=== PATIENT | female | born 1975 | race Caucasian/White ===

== ENCOUNTER → 2023-08-25 16:37 | Outpatient (REF) | payer OTHER, SELFPAY | LOC: WDC 16:37 | PROVIDERS: ATTENDING PHYSICIAN Obstetrics & Gynecology; FAMILY PHYSICIAN Emergency Medicine | DX: Z12.31 Encounter for screening mammogram for malignant neoplasm of breast (principal) | CPT/HCPCS: 77063; 77067 ==

== ENCOUNTER 2023-09-19 22:05 | Inpatient (IN) | payer OTHER, SELFPAY ==
[2023-09-19] VITALS (9 sets, daily range): BP systolic 110–167; BP diastolic 70–99; BMI 31.2
[2023-09-19 14:38] LABS: % Basophils 0.6 % (0-2); % Eosinophils 0.9 % (0-6); % Immature Granulocytes 0.3 % (0-0.5); % Lymphocytes 30.7 % (20.5-51.1); % Monocytes 7.1 % (1.7-9.3); % Neutrophils 60.4 % (42.2-75.2); Absolute Eosinophils 0.1 10^3/uL (0-0.7); Absolute Monocytes 0.5 10^3/uL (0.1-0.6); Absolute Neutrophils 3.9 10^3/uL (1.4-6.5); Hematocrit 40.9 % (37.0-47.0); Hemoglobin 14.8 g/dL (12.0-16.0); Mean Corp Hgb Conc. 36.2 g/dL (33.0-37.0); Mean Corpuscular Hgb 31.7 pg (27.0-31.0); Mean Corpuscular Volume 87.6 fL (81.0-99.0); Nucleated Red Blood Cells % 0 %; Platelet Count 261 10^3/uL (130-400); Red Blood Cell Count 4.67 10^6/uL (4.20-5.40); Red Cell Dist. Width 11.4 % (11.5-14.5); White Blood Cell Count 6.5 10^3/uL (4.8-10.8)
[2023-09-19 14:58] LABS: ALT (SGPT) 62 U/L (0-35); AST (SGOT) 219 U/L (14-36); Albumin 4.6 g/dl (3.5-5.0); Alkaline Phosphatase 94 U/L (38-126); Blood Urea Nitrogen 15 mg/dl (7-17); Calcium 9.9 mg/dl (8.4-10.2); Carbon Dioxide 28 mmol/L (22-30); Chloride 101 mmol/L (98-107); Glucose 113 mg/dl (70-99); Lipase 232 U/L (23-300); Potassium 3.9 mmol/L (3.5-5.1); Sodium 135 mmol/L (135-145); Total Bilirubin 1.9 mg/dl (0.2-1.3); Total Protein 7.5 g/dl (6.3-8.2); eGFR > 60.00
[2023-09-19 15:09] LABS: HCG, Serum Qualitative Screen Negative
--- NOTE | 2023-09-19 15:48 | ED.GENMED ---
History of Present Illness
General
Chief Complaint: Abdominal Pain
Time Seen by Provider: 09/19/23 15:40
Travel History
Have you had any contact with someone who has COVID-19?: No
Do you have any symptoms of coronavirus? Fever > 100 degrees, chills, cough, shortness of breath, sore throat, loss of taste or smell, muscle aches, or headache?: No
History of Present Illness
History of Present Illness:
Patient presents the emergency department with upper abdominal pain. Pain started suddenly at 1 PM after eating. She notes she has had similar pain in the past with negative workup. Endorses nausea without vomiting. Endorses chills and
diaphoresis. Denies chest pain or shortness of breath. Denies leg swelling. Denies lower abdominal pain.
Phy Exam
Physical Exam
Physical Exam:
GENERAL APPEARANCE: in distress, rocking in stretcher in pain
EYES lids/conjunctiva normal
EARS/NOSE/THROAT Mucous membranes moist, uvula midline without oral pharyngeal erythema, exudate or swelling
HEAD/NECK normocephalic atraumatic, neck is supple.
RESPIRATORY respiratory effort normal, speaks in full sentences, no accessory muscle use. Lungs clear to auscultation without rhonchi, wheezes, rales
CARDIAC Regular rate and rhythm, no edema.
ABDOMINAL soft, non distended, epigastric ttp
MUSCLES/EXTREMITIES No abnormal range of motion, no swelling.
SKIN Warm, pink and dry. No rashes
NEUROLOGICAL Speech is clear and appropriate. Normal level of consciousness. 5/5 strength in all extremities.
PSYCH Normal mood and affect. Judgement/competence is appropriate
Course
Orders/Labs/Results
Orders:
Orders
09/19/23 14:24
ECG [Electrocardiogram (*1)] Urgent
Reason for Study: Abdominal Pain
EKG- Treatment ONCE
09/19/23 14:29
Test Result ONCE
09/19/23 14:31
Complete Blood Count/With Diff Urgent
Comprehensive Metabolic Panel Urgent
HCG, Serum Qualitative Screen Urgent
Lipase Urgent
09/19/23 15:46
0.9% Sodium Chloride 1000 ml [Nss] 1,000 ml IV BOLUS
HYDROmorphone [Dilaudid] 1 mg IV NOW STA
Ondansetron Injectable [Zofran] 4 mg IV NOW STA
09/19/23 15:48
Pantoprazole [Protonix IV] 40 mg IV NOW STA
09/19/23 15:49
US Abdomen Complete/Upper Urgent
Comment:
Reason For Exam: upper abdominal pain
Abnormal Lab Results
09/19/23
14:31
MCH 31.7 H pg
(27.0-31.0)
RDW 11.4 L %
(11.5-14.5)
Glucose 113 H mg/dl
(70-99)
Total Bilirubin 1.9 H mg/dl
(0.2-1.3)
AST 219 H U/L
(14-36)
ALT 62 H U/L
(0-35)
09/19/23 14:31
09/19/23 14:31
Vital Signs
Initial and Last Documented VS:
Initial Vital Signs
Temp Pulse Resp BP Pulse Ox
97.7 F 86 20 167/99 99
09/19/23 14:21 09/19/23 14:21 09/19/23 14:21 09/19/23 14:21 09/19/23 14:21
Last Documented Vital Signs
Temp Pulse Resp BP Pulse Ox
97.7 F 75 17 122/85 98
09/19/23 14:21 09/19/23 20:00 09/19/23 19:45 09/19/23 20:00 09/19/23 20:00
*Critical Care Note
Total Time (30-74mins, 75-104mins- exclusive of procedures): Not Applicable
ED Attending Note
ED Attending Note
ED Attending Note:
Patient with acute onset epigastric and right upper quadrant abdominal pain. History suggestive of biliary pathology versus pancreatitis versus gastritis. Labs indicating elevated transaminases as well as total bilirubin. Will ultrasound abdomen
and treat symptomatically.
WBC 6.5, T bili 1.9, AST 219, ALT 62, alk phos 94 lipase normal
RUQ US shows cholelithiasis with layering sludge but no wall thickening and negative [place], CBD 6mm.
Given her persistent pain with abnormal LFTs and stone, concern for choledocholithiasis
Will admit for more of a workup, possibly HIDA or MRCP, GI consult
-
Portions of this chart may have been created with voice recognition software.� Occasional wrong word or��sound alike� substitutions may have occurred due to the inherent limitations of voice recognition software.
Discharge Plan
Departure
Patient Disposition: Admit
Date of Disposition: 09/19/23
Time of Disposition: 21:38
Admit to: Med/Surg
Admit to doctor: Rodger
Presentation/result/management discussed w/ accepting MD/DO: Hospitalist
Discharge Problem:
Cholelithiasis, Abnormal LFTs
Prescriptions:
No Action
MULTIPLE VITAMIN w/FE Tab
1 tab PO DAILY
folic acid-vit B6-vit B12 [Folplex 2.2] 1 EACH tablet
1 tab PO DAILY
oxycodone-acetaminophen 5 MG/325 MG tablet
1 tab PO Q4HPRN PRN (Reason: moderate pain) Qty: 30 0RF
ibuprofen 600 MG tablet
600 mg PO Q6HPRN PRN (Reason: moderate pain/cramps) Qty: 0 0RF
docusate sodium 100 MG capsule
100 mg PO BID Qty: 0 0RF
Referrals:
Cheyenne Dunaway MD [Family Provider] -
Interventions
Interventions:
*ED COVID-19 Vaccine History Last Done: 09/19/23 14:21
ZW-Mcqozq-Nealzogrdm Assessment Last Done: 09/19/23 16:01
Discharge Date and Time
Print Language: LITHUANIAN
[2023-09-19] MEDS: NSS 1000 IV ×2 (15:53→22:47)
[2023-09-19] MEDS: ZOFRAN 4 MG IV (15:54)
[2023-09-19] MEDS: DILAUDID 1 MG IV (15:54)
[2023-09-19] MEDS: PROTONIX IV 40 MG IV (15:54)
--- NOTE | 2023-09-19 21:38 | HPS.HSE ---
Family Physician
-
Family Physician: Cheyenne Dunaway MD
Chief Complaint
-
Return upper abdominal pain
History of Present Illness
47-year-old female with no known major medical history and not taking any medication, presented to the hospital after she had a sudden onset of upper abdominal pain mostly epigastric and right upper quadrant radiating to the right shoulder
associated with sweating, nausea but no vomiting. No relieving factor, in the ER received some Dilaudid which made a little more nauseous and lethargic and giving her headache, her pain is mild while earlier initially was extremely severe,
currently feels some tightness and squeezing in epigastric and the right upper quadrant area.
The pain started around 1:30 PM today while she was at a bridal shower lunch, and she had the same episode with her milder form on Thursday and she had another 15 February 2023, since Thursday she is trying to not eat heavy food while today the bridal
shower she ate some salmon and some of the staff and followed up by the event, denies any changes stool or urine color in the last few days, no fever or chill or cough or congestion, no headache or vision change.
Workup in the ER LFTs was elevated while in February is not, AST was 219 and ALT is 62.
Denies taking any NSAIDs or spicy or sour food, she took some Pepto-Bismol when the pain started Thursday and today without any relief.
The ultrasound showed cholelithiasis otherwise no acute abnormalities.
She is awake, alert and oriented x 3 and all appropriate conversation and accompanied by her at the bedside
Medical History
Past Medical History
Past Medical History: Reports Other
Additional Past Medical History:
Past medical history Reviewed: No known major medical disease
Social history: lives with her , no smoking, occasionally drinks alcohol.
Family history: Father had gallbladder disease as well.
Past Surgical History: Reports Other
Social History
Unable to obtain full social history at this time due to: Other
Family History
Family History: Other
Allergies / Home Medications
Allergies reflects when Allergies were last updated in [facility].
Home Medications with original date entered in [facility]
Allergy/Medication List:
Allergies
Allergy/AdvReac Type Severity Reaction Status Date / Time
No Known Allergies Allergy Verified 09/19/23 14:23
Home Medications
Not taking any medication
Review of Systems
-
A 12 point ROS was completed and negative except as noted: Yes
Physical Exam
Vital Signs
Vital Signs
Temp Pulse Resp BP Pulse Ox
97.7 F 75 17 122/85 98
09/19/23 14:21 09/19/23 20:00 09/19/23 19:45 09/19/23 20:00 09/19/23 20:00
Physical exam:
General: Awake, alert and oriented x3, not in distress and holds appropriate conversation.
HEENT: No active discharge, ecchymosis or bruising, moist lips, tongue and mucous membrane.
Eyes: No discharge or red conjunctiva, no nystagmus, pupils are reactive and equal
Neck:Supple, no JVD no bruit no goiter.
Respiratory: Normal AP contour and diameter, normal chest wall movement, normal respiratory effort, no respiratory distress,
Lungs: Good air entry bilaterally, no wheezing or rhonchi, no rales or crackles
Heart: S1, S2 regular, normal rate, no added sound.
Gastrointestinal: No skin rash positive bowel sounds, soft, upper abdominal tenderness with no guarding or rigidity or organomegaly
Musculoskeletal: , no chest wall abnormality or tenderness. All joints and extremities have good range of motion, no muscle tenderness or any joint swelling or tenderness.
Extremities: No pitting edema, good peripheral pulses, good range of motion
Skin: Warm and dry, no ulceration, normal color.
Neurological: Awake, alert and oriented x3, no facial droop, clear and comprehensive, good muscle tone, moves extremities freely
Psychiatric: Normal mood, normal thought and judgment, normal affect,
Physical Exam
General: Other
Laboratory Results
-
09/19/23 14:31
09/19/23 14:31
Laboratory Results
Total Bilirubin 1.9 mg/dl (0.2-1.3) H 09/19/23 14:31
AST 219 U/L (14-36) H 09/19/23 14:31
ALT 62 U/L (0-35) H 09/19/23 14:31
Alkaline Phosphatase 94 U/L (38-126) 09/19/23 14:31
Lipase 232 U/L (23-300) 09/19/23 14:31
Abdomen US:
Cholelithiasis. Gallbladder otherwise negative.
Remainder of the exam was unremarkable.
Data Reviewed
-
Medical Tests (Nuc Med, Echo, EKG etc): Image Personally Visualized and interpreted, Discussed with Patient and Discussed with Family
Lab Data: Labs Reviewed by me, Discussed with Patient and Discussed with Family
Old Records: Reviewed
Impression/Plan
-
IMPRESSION:
47-year-old female presented with epigastric pain with nausea and no vomiting after what sounds like Chandan had a heavy lunch and a bridal shower earlier today, had the same episode in a milder form on Thursday and another episode in February,
ultrasound showed gallstones as well as there is elevated LFT. Concern is a gallstone blocking about the common bile duct and eventually worst awake, acid ultrasound showed no common bile duct dilation, other causes gastritis or peptic ulcer
disease may need to be considered, doubt a cardiac cause of infection of pulm embolism, no skin rash for shingles.
Recurrent upper abdominal pain concerning for gallbladder disease and gallstone induced
Elevated transaminase possibly related to gallstone, even AST is higher than ALT but she admits she very occasionally drinks alcohol she had a drink for lunch today
Elevated bilirubin is 1.9 today as above related to the gallbladder stone likely
Gastritis or peptic ulcer disease may need to be considered
PLAN:
Since is a recurrent episode emesis twice this week and already having a gallstone stone, will get an MRCP to rule out common bile duct stone or any other abnormalities,
Clear liquid diet for now
Get a GI consult, and pending the MRCP may need a surgical consult, if this did not to be gallbladder related eventually the cholecystectomy especially with already having a gallstone and this is recurrent episode
Recheck LFT
Morphine as needed
Zofran as needed
She is not taking any medication
IV fluid
All discussed with the patient and the
CODE STATUS full code
DVT prophylaxis SCD
--- NOTE | 2023-09-19 22:10 | PTCARENOTE ---
Patient received from the ED via stretcher, ambulated into the room, AAOx3. VSS, Patient complained of abdominal discomfort, given pain medication PRN see JUL. Patient made comfortable, oriented to the room and educated on clear liquid diet. Call
heredia is within reach.
[2023-09-19] MEDS: MORPHINE SULFATE 2 MG IV (22:47)
[2023-09-20] MEDS: TORADOL 15 MG IV (02:09)
[2023-09-20] MEDS: ZOFRAN 4 MG IV (02:13)
[2023-09-20 07:00] VITALS: BP 119/79
[2023-09-20 07:02] LABS: % Basophils 0.7 % (0-2); % Eosinophils 2.9 % (0-6); % Immature Granulocytes 0.5 % (0-0.5); % Lymphocytes 28.6 % (20.5-51.1); % Neutrophils 51.3 % (42.2-75.2); Absolute Eosinophils 0.1 10^3/uL (0-0.7); Absolute Lymphocytes 1.2 10^3/uL (1.2-3.4); Absolute Monocytes 0.7 10^3/uL (0.1-0.6); Absolute Neutrophils 2.1 10^3/uL (1.4-6.5); Hematocrit 36.9 % (37.0-47.0); Mean Corp Hgb Conc. 35.2 g/dL (33.0-37.0); Mean Corpuscular Hgb 31.9 pg (27.0-31.0); Mean Corpuscular Volume 90.7 fL (81.0-99.0); Mean Platelet Volume 9.5 fL (7.4-10.4); Nucleated Red Blood Cells % 0.5 %; Platelet Count 192 10^3/uL (130-400); Red Blood Cell Count 4.07 10^6/uL (4.20-5.40); Red Cell Dist. Width 11.4 % (11.5-14.5); White Blood Cell Count 4.1 10^3/uL (4.8-10.8)
[2023-09-20 07:56] LABS: Urine Albumin Negative (Neg - Trace); Urine Bilirubin 1+ (Negative); Urine Character Clear (Clear); Urine Color Amber; Urine Glucose Negative (Negative); Urine Ketone Trace (Negative); Urine Leukocyte Negative (Negative); Urine Nitrite Negative (Negative); Urine Occult Blood Negative (Negative); Urine Specific Gravity 1.025 (<1.030); Urine Urobilinogen 2+ (Neg - 1+)
--- NOTE | 2023-09-20 08:06 | CON.GI ---
Addendum entered and electronically signed by Susanna Albert MD 09/20/23 15:58:
consult performed 09/20/2023, 3pm
Original Note:
Consultation
-
Date/Time Consultation Requested: 09/19/2023, 22:00
Date/Time Consultation Performed: 09/20/2023,
Requesting Provider: Dr. Orellana
Performing Provider: Dr. Albert
Reason for Consultation: elevated LFTs, abd pain
Medical History
Chief Complaint / HPI
Chief Complaint: upper abd pain
History of Present Illness:
47 yo p/w acute upper abd pain epigastic RUQ with nausea no vomiting. No f/c.
Patient of Dr. Nelson saw her recently 09/14/2023 having 4 episodes of pain right back radiating to RUQ started first in Feb (went to ER for this episode). A/w nausea, sweats. US during ER visit 02/[address] Nelson had high suspicion for
biliary colic and ordered HIDA (not done yet). Patient now having a more severe episode of RUQ/epigastric pain after going to bridal shower and having bundt cake, bermudian toast, salmon, mimosa- worst episode to date. With nausea, no vomiting, no
f/c.
Father had CCY not sure about mother
Labs remarkable for TB 1.9, AST 219, ALT 62, normal AP. Repeat labs TB 3.4, AST 902, ALT 616, AP 136, hep serologies neg (vaccinated against hep B).
US Cholelithiasis. Gallbladder otherwise negative. No holly dil, CBD 6 mm.
Past Medical History
Past Medical History: None
Past Surgical History: Other (scoliosis surgery)
Social History
Tobacco: Non-Smoker
Alcohol: Occasional
Drug: None
Family History
Family History: Other (dad with CCY)
Allergies / Home Medications
Allergy/AdvReac Type Severity Reaction Status Date / Time
No Known Allergies Allergy Verified 09/19/23 14:23
�Medication �Instructions �Recorded
MULTIPLE VITAMIN w/FE 1 tab PO DAILY 03/27/14
folic acid-vit B6-vit B12 2.2 1 tab PO DAILY 03/27/14
mg-25 mg-0.5 mg tablet (Folplex)
docusate sodium 100 mg capsule 100 mg PO BID #0 caps 03/31/14
ibuprofen 600 mg tablet 600 mg PO Q6HPRN PRN moderate 03/31/14
pain/cramps ##0
oxycodone-acetaminophen 5 mg-325 1 tab PO Q4HPRN PRN moderate pain 03/31/14
mg tablet ##30
Review of Systems
-
All other systems: A 12 pt ROS was Negative except as stated above in HPI
Vital Signs
Temp Pulse Resp BP Pulse Ox
98.6 F 80 18 129/85 98
09/19/23 22:16 09/19/23 22:16 09/19/23 22:16 09/19/23 22:16 09/19/23 22:16
Physical Exam
Exam
General: Well Developed
HEENT: Normocephalic
Respiratory: Clear
Cardiac: S1/S2
GI: Non Tender and Non Distended
Musculoskeletal: No Clubbing
Skin: Warm
Neuro: AO x 3
Psych: Calm
Results
WBC 4.1 10^3/uL (4.8-10.8) L 09/20/23 06:00
Hgb 13.0 g/dL (12.0-16.0) 09/20/23 06:00
Hct 36.9 % (37.0-47.0) L 09/20/23 06:00
MCV 90.7 fL (81.0-99.0) 09/20/23 06:00
Plt Count 192 10^3/uL (130-400) D 09/20/23 06:00
Absolute Neuts (auto) 2.1 10^3/uL (1.4-6.5) 09/20/23 06:00
Sodium 135 mmol/L (135-145) 09/19/23 14:31
Potassium 3.9 mmol/L (3.5-5.1) 09/19/23 14:31
Chloride 101 mmol/L (98-107) 09/19/23 14:31
Carbon Dioxide 28 mmol/L (22-30) 09/19/23 14:31
BUN 15 mg/dl (7-17) 09/19/23 14:31
Creatinine 0.7 mg/dL (0.6-1.0) 09/19/23 14:31
Calcium 9.9 mg/dl (8.4-10.2) 09/19/23 14:31
Total Bilirubin 1.9 mg/dl (0.2-1.3) H 09/19/23 14:31
AST 219 U/L (14-36) H 09/19/23 14:31
ALT 62 U/L (0-35) H 09/19/23 14:31
Alkaline Phosphatase 94 U/L (38-126) 09/19/23 14:31
Lipase 232 U/L (23-300) 09/19/23 14:31
Diagnostic Image Results:
Prior GI Procedures:
EGD:
Colonoscopy:
Assessment / Plan
-
47-year-old female presenting with abdominal pain found to have a elevated LFTs and gallstones. Most likely this is biliary colic. She may have choledocholithiasis as well with elevated bilirubin.
At this time, I recommend an MRI/MRCP which has been ordered. Repeat LFTs bili increased from 1.9 to 3.4 which is concerning for choledocho. I discussed with primary team we also consulted surgery as I suspect she will need her gallbladder out at
some interval. I d/w surgery. We discussed possible ERCP and how procedure is performed if needed.
I d/w surgery ok for clears after MRI, NPO after midnight for possible ERCP tomorrow.
-
-
Thank you for consultation and allowing me to participate in the patient's care. Please call the partition notcher GI physician during the after hours with any questions or concerns.
[2023-09-20 08:10] LABS: ALT (SGPT) 616 U/L (0-35); AST (SGOT) 902 U/L (14-36); Albumin 3.5 g/dl (3.5-5.0); Alkaline Phosphatase 136 U/L (38-126); Blood Urea Nitrogen 13 mg/dl (7-17); Calcium 8.9 mg/dl (8.4-10.2); Carbon Dioxide 28 mmol/L (22-30); Chloride 107 mmol/L (98-107); Estimated Creatinine Clearance 98 ml/min; Glucose 104 mg/dl (70-99); Potassium 4.5 mmol/L (3.5-5.1); Sodium 137 mmol/L (135-145); Total Bilirubin 3.4 mg/dl (0.2-1.3); Total Protein 6.1 g/dl (6.3-8.2); eGFR > 60.00
[2023-09-20 08:21] LABS: TSH 1.82 uIU/ml (0.47-4.68)
[2023-09-20 08:28] LABS: Direct Bilirubin 1.2 mg/dl (0.0-0.4)
[2023-09-20] MEDS: MORPHINE SULFATE 2 MG IV ×3 (08:28→23:26)
[2023-09-20] MEDS: NSS 1000 IV (08:29)
[2023-09-20] MEDS: SENOKOT-S 1 TABLET PO (08:43)
--- NOTE | 2023-09-20 10:36 | W.PN.HOSP.TC ---
Today's Communication/Plan
-
see A/P
Assessment / Plan
Assessment / Plan
HPI: 47-year-old female with no known medical history and not taking any medication, presented to the hospital after she had a sudden onset of upper abdominal pain mostly epigastric and right upper quadrant radiating to the right shoulder associated
with sweating, nausea but no vomiting.
The pain started around 1:30 PM while she was at a bridal shower lunch, and she had a similar milder episode a few days prior.
In the ED, her LFT was noted to be elevated.
Ultrasound showed cholelithiasis otherwise no acute abnormalities.
A/P:
# RUQ Abd pain with gallstone, likely due to biliary colic
# Worsening transaminitis
Pt denies to medication use, also not on herbal supplement
Abd US noted Cholelithiasis, Gallbladder otherwise negative
Lipase WNL.
Check MRCP to rule out common bile duct pathology
Check hepatitis panel for worsening transaminitis
NPO for now, cont IVF while NPO, change NSS to RL
Follow LFT
Pain control with Morphine as needed
Antiemetic with Zofran as needed
GI on board
GS consulted
CODE STATUS full code
DVT prophylaxis SCD
DW RN
DW at bedside
Anticipated Discharge: 24 - 48 hours
Subjective/Interval History
-
Date of Service: September 20, 2023
Objective Data
-
Labs:
Laboratory Results
09/20/23
06:00
WBC 4.1 L
Hgb 13.0
Hct 36.9 L
Plt Count 192 D
Sodium 137
Potassium 4.5
Chloride 107
Carbon Dioxide 28
BUN 13
Creatinine 0.7
Glucose 104 H
Calcium 8.9
Total Bilirubin 3.4 H D
AST 902 H*
ALT 616 H*
Alkaline Phosphatase 136 H
Vital Signs:
Vital Signs
Temp Pulse Resp BP Pulse Ox
36.7 C 64 14 119/79 100
09/20/23 07:00 09/20/23 07:00 09/20/23 07:00 09/20/23 07:00 09/20/23 07:00
I&O
09/19/23 09/20/23 09/21/23
06:59 06:59 06:59
Intake Total 1859
Balance 1859
Review of Systems
-
All other systems: Reviewed and negative
Physical Exam
-
General: Well Developed, Well Nourished, No Apparent Distress, Comfortable and Conversant; Negative Respiratory Distress
HEENT: Normocephalic, Atraumatic, Nose Appears Normal and Ears Appear Normal; Negative Oxygen
Respiratory: Clear to Auscultation and Non Labored Respirations; Negative Accessory Resp Muscle Use
Cardiac: Regular Rhythm and S1/S2
GI: Soft, Nontender and Nondistended
Skin: Warm and Dry
Neuro: Awake, Alert, Oriented and AO x 3
Psych: Calm and Intact Judgement/Insight
Data Reviewed
-
Ultrasound: Report Reviewed by me
Labs: Labs Reviewed by me
[2023-09-20] MEDS: LR 1000 IV ×2 (11:22→21:38)
[2023-09-20 12:11] LABS: Hepatitis B Surface Antigen Negative (Negative)
[2023-09-20 12:14] LABS: Hepatitis B Core Ab, IgM Negative (Negative)
[2023-09-20 12:28] LABS: Hepatitis B Core Ab, Total Negative (Negative); Hepatitis B Surface Antibody Positive; Hepatitis C Antibody Negative (Negative)
--- NOTE | 2023-09-20 12:28 | CON.GS ---
Consultation
-
Date/Time Consultation Requested: 09/20/23 0803
Requesting Provider: Dai
Medical History
-
Chief Complaint: abdominal pain
History of Present Illness:
This is a 47 yo female with a history of who presented through the ED with acute onset of upper abdominal pain radiating over to the right side. She has had a similar episode this severe in February with negative US at that time. She has
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 Nelson since that time for further work up. She had an episode of RUQ/epigastric pain on Thursday of pain which was self limiting and without n/v. She went to a bridal shower the following day, and after
lunch developed pain again with diaphoresis and nausea. She is currently tender to the RUQ on exam. She denies n/v. Jaundice is noted.
Past Medical History
Past Medical History: None
Past Surgical History:
Social History
Tobacco: Non-Smoker
Alcohol: Occasional
Personal:
Living: With Family
Family History
Family History: Reviewed & Not Pertinent
Allergies / Home Medications
Allergy/AdvReac Type Severity Reaction Status Date / Time
No Known Allergies Allergy Verified 09/19/23 14:23
�Medication �Instructions �Recorded �Confirmed �Type
MULTIPLE VITAMIN w/FE 1 tab PO DAILY 03/27/14 09/19/23 History
folic acid-vit B6-vit B12 2.2 1 tab PO DAILY 03/27/14 09/19/23 History
mg-25 mg-0.5 mg tablet (Folplex)
docusate sodium 100 mg capsule 100 mg PO BID #0 caps 03/31/14 09/19/23 Rx
ibuprofen 600 mg tablet 600 mg PO Q6HPRN PRN moderate 03/31/14 09/19/23 Rx
pain/cramps ##0
oxycodone-acetaminophen 5 mg-325 1 tab PO Q4HPRN PRN moderate pain 03/31/14 09/19/23 Rx
mg tablet ##30
Review of Systems
-
History Source: Patient
All other systems: Negative unless noted
A 10 point review of systems was completed, and was negative except as per HPI.
Physical Exam
Vital Signs
Temp Pulse Resp BP Pulse Ox
98.0 F 64 14 119/79 100
09/20/23 07:00 09/20/23 07:00 09/20/23 07:00 09/20/23 07:00 09/20/23 07:00
09/19/23 09/20/23 09/21/23
06:59 06:59 06:59
Actual Weight 77.224 kg
Body Mass Index (BMI) 31.2
Lab Results
09/20/23 06:00
09/20/23 06:00
WBC 4.1 10^3/uL (4.8-10.8) L 09/20/23 06:00
Hgb 13.0 g/dL (12.0-16.0) 09/20/23 06:00
Hct 36.9 % (37.0-47.0) L 09/20/23 06:00
Plt Count 192 10^3/uL (130-400) D 09/20/23 06:00
Abs Immat Gran (auto) 0.0 10^3/uL (0-0.05) 09/20/23 06:00
Neutrophils % 51.3 % (42.2-75.2) 09/20/23 06:00
Physical Exam
General: Comfortable
HEENT: Normocephalic and Moist Mucous Membranes
Respiratory: Non Labored Respirations
GI: Soft, Non Distended and Tender (RUQ)
Skin: Warm and Jaundice
Neuro: Awake and AO x 3
Psych: Calm
Data Reviewed
-
Ultrasound: Image Personally Visualized and interpreted, Report Reviewed by me, Discussed with Physician and Discussed with Patient
Labs: Labs Reviewed by me, Discussed with Physician and Discussed with Patient
Old Records: Reviewed
Assessment / Plan
-
47 yo female with biliary colic with RUQ and epigastric pain/nausea recurrently after meals this weekend. Currently tender to the RUQ. No f/c. LFT's abnormal and rising bilirubin. Jaundice present. Cholelithiasis without cholecystitis on US in ED.
AFVSS. No leukocytosis although there is mild leukopenia today.
--GI following with us, d/c Dr. Albert
--MRCP pending, ?choledocholithiasis
--Would recommend laparoscopic cholecystectomy, timing TBD pending MRCP findings as she may need ERCP first
--Analgesics/antiemetics prn
--Trend labs
[2023-09-20 12:31] LABS: Hepatitis A Antibody, Total Negative (Negative)
[2023-09-20 13:36] LABS: Hepatitis A IgM Antibody Negative (Negative)
[2023-09-20 15:00] VITALS: BP 150/102
--- NOTE | 2023-09-20 22:37 | VATNOTE ---
Unsuccessful x2 attempts to place new IV. Other VAT RN to attempt.
[2023-09-20 23:46] VITALS: BP 126/73
[2023-09-21 05:15] LABS: % Basophils 0.5 % (0-2); % Eosinophils 5.2 % (0-6); % Lymphocytes 36.1 % (20.5-51.1); % Monocytes 8.8 % (1.7-9.3); % Neutrophils 49.4 % (42.2-75.2); Absolute Eosinophils 0.2 10^3/uL (0-0.7); Absolute Lymphocytes 1.5 10^3/uL (1.2-3.4); Absolute Monocytes 0.4 10^3/uL (0.1-0.6); Absolute Neutrophils 2.1 10^3/uL (1.4-6.5); Hematocrit 36.4 % (37.0-47.0); Hemoglobin 12.7 g/dL (12.0-16.0); Mean Corp Hgb Conc. 34.9 g/dL (33.0-37.0); Mean Corpuscular Hgb 31.7 pg (27.0-31.0); Mean Corpuscular Volume 90.8 fL (81.0-99.0); Mean Platelet Volume 9.7 fL (7.4-10.4); Nucleated Red Blood Cells % 0 %; Platelet Count 175 10^3/uL (130-400); Red Blood Cell Count 4.01 10^6/uL (4.20-5.40); Red Cell Dist. Width 11.2 % (11.5-14.5); White Blood Cell Count 4.2 10^3/uL (4.8-10.8)
[2023-09-21 05:45] LABS: ALT (SGPT) 410 U/L (0-35); AST (SGOT) 261 U/L (14-36); Albumin 3.4 g/dl (3.5-5.0); Alkaline Phosphatase 173 U/L (38-126); Blood Urea Nitrogen 11 mg/dl (7-17); Calcium 9.3 mg/dl (8.4-10.2); Carbon Dioxide 24 mmol/L (22-30); Chloride 107 mmol/L (98-107); Estimated Creatinine Clearance 98 ml/min; Glucose 77 mg/dl (70-99); Magnesium 1.9 mg/dl (1.6-2.3); Potassium 4.4 mmol/L (3.5-5.1); Sodium 138 mmol/L (135-145); Total Bilirubin 3.8 mg/dl (0.2-1.3); Total Protein 5.8 g/dl (6.3-8.2); eGFR > 60.00
[2023-09-21 07:00] VITALS: BP 123/76
[2023-09-21] MEDS: LR 1000 IV ×2 (08:55→23:24)
--- NOTE | 2023-09-21 09:15 | W.PN.GI.CBS2 ---
Today's Communication / Plan
-
mri further recs pending
Assessment / Plan
-
47-year-old female presenting with abdominal pain found to have a elevated LFTs and gallstones. Most likely this is biliary colic as well as choledocholithiasis with rising bili.
At this time, I recommend an MRI/MRCP which patient is going for now. We discussed possible ERCP and r/a/b reviewed inc but not limited to bleeding, infection, perforation, pancreatitis. Pending MRI may have ERCP today with Dr. Hanley.
I d/w surgery today as well plan will need CCY as well.
OK for tylenol for headache.
Subjective
Subjective
Date of Service: September 21, 2023
pain improved but has not eaten
has caffeine headache
Objective
Data Reviewed
Laboratory Data:
Laboratory Results
09/21/23 04:34
09/21/23 04:34
Laboratory Results
Magnesium 1.9 mg/dl (1.6-2.3) 09/21/23 04:34
Total Bilirubin 3.8 mg/dl (0.2-1.3) H 09/21/23 04:34
AST 261 U/L (14-36) H 09/21/23 04:34
ALT 410 U/L (0-35) H 09/21/23 04:34
Alkaline Phosphatase 173 U/L (38-126) H 09/21/23 04:34
Lipase 232 U/L (23-300) 09/19/23 14:31
Vital Signs and I&O:
Vital Signs
Temp Pulse Resp BP Pulse Ox
97.8 F 83 18 123/76 98
09/21/23 07:00 09/21/23 07:00 09/21/23 07:00 09/21/23 07:00 09/21/23 08:48
I&O
09/20/23 09/21/23 09/22/23
06:59 06:59 06:59
Intake Total 1859
Output Total 200 / 200
Balance 1859
Physical Exam
Physical Exam
HEENT: Other (icteric)
Cardiology: Normal Sinus Rhythm
Pulmonary: Clear
GI: Non Distended and Non Tender
--- NOTE | 2023-09-21 09:35 | W.PN.GS2 ---
Today's Communication / Plan
-
MRCP/ERCP. Appreciate GI input.
Plan for lap hermelinda this admission.
Assessment / Plan
-
This is a 47-year-old female with a history of a who presents with a 1 day history of acute postprandial right upper quadrant pain with 1 similar episode in February. Workup here concerning for cholelithiasis, elevated LFTs concerning for
choledocholithiasis.
Bilirubin rising recommend MRCP versus straight ERCP, will defer to GI.
Plan for laparoscopic cholecystectomy this admission, timing to be determined unlikely to be today. Okay for diet after any procedures today, n.p.o. at midnight.
No clear indication for antibiotics at this point.
Trend CMP and CBC.
General surgery will continue to follow.
Time Spent
Total Time Spent with Patient (in minutes): 30
Subjective Data
-
Date of Service: September 21, 2023
This interval Events:
No acute events overnight. Slept well. Pain Controlled. Denies Nausea/Vomiting, +bowel function. Tolerating diet.
Objective Data
-
Intake and Output
09/20/23 09/21/23 09/22/23
06:59 06:59 06:59
Intake Total 1860 / 1860 1960 / 1960
Output Total 200 / 200
Balance 1860 / 1860 1760 / 1760
Intake:
Oral fluids 960 / 960 960 / 960
IV fluids (Total) 900 / 900 1000 / 1000
Output:
Urine, Voided 200 / 200
Other:
Number of approximated MODERATE 1 1
amounts of urine
How many times incontinent 1
MODERATE amount urine
Vital Signs
Temp Pulse Resp BP Pulse Ox
97.8 F 83 18 123/76 98
09/21/23 07:00 09/21/23 07:00 09/21/23 07:00 09/21/23 07:00 09/21/23 08:48
Lab Results
09/21/23 04:34
09/21/23 04:34
Calcium 9.3 mg/dl (8.4-10.2) 09/21/23 04:34
Magnesium 1.9 mg/dl (1.6-2.3) 09/21/23 04:34
Total Bilirubin 3.8 mg/dl (0.2-1.3) H 09/21/23 04:34
Direct Bilirubin 1.2 mg/dl (0.0-0.4) H 09/20/23 06:00
AST 261 U/L (14-36) H 09/21/23 04:34
ALT 410 U/L (0-35) H 09/21/23 04:34
Alkaline Phosphatase 173 U/L (38-126) H 09/21/23 04:34
Total Protein 5.8 g/dl (6.3-8.2) L 09/21/23 04:34
Albumin 3.4 g/dl (3.5-5.0) L 09/21/23 04:34
Physical Exam
-
GENERAL/NEURO: Awake, Alert, no distress
CHEST: Unlabored breathing on RA
ABDOMEN: Soft, Non-Tender, Non-Distended
--- NOTE | 2023-09-21 10:09 | W.PN.HOSP.TC ---
Today's Communication/Plan
-
Choledocholithiasis status post ERCP today
Appreciate GI and surgery
Assessment / Plan
Assessment / Plan
Physical Exam
Physical Exam was not able to be performed as patient was not present in her room at the time of attempted patient encounter.

Assessment/Plan
HPI: 47-year-old female with no known medical history and not taking any medication, presented to the hospital after she had a sudden onset of upper abdominal pain mostly epigastric and right upper quadrant radiating to the right shoulder associated
with sweating, nausea but no vomiting.
The pain started while she was at a bridal shower lunch, and she had a similar milder episode a few days prior.
In the emergency department, her LFTs were noted to be elevated.
Ultrasound showed cholelithiasis otherwise no acute abnormalities.
# RUQ Abd pain with gallstone, likely due to biliary colic
# Worsening transaminitis
# Choledocholithiasis/ sludge was found status post biliary sphincterotomy and balloon extraction.
Patient denied medication use, also not on herbal supplement
Abdominal ultrasound noted - Cholelithiasis, Gallbladder otherwise negative
Lipase WNL.
MRCP with stone in CBD
Check hepatitis panel
NPO for now, cont IVF while NPO
Follow LFT
Pain control with Morphine as needed
Antiemetic with Zofran as needed
GI on board
GS consulted -- lap hermelinda for this admission
CODE STATUS full code
DVT prophylaxis SCD
Anticipated Discharge: 24 - 48 hours
Subjective/Interval History
-
Date of Service: September 21, 2023
Patient was not present in her room at the time of attempted patient encounter. Patient's chart was reviewed.
Objective Data
-
Labs:
Laboratory Results
09/21/23
04:34
WBC 4.2 L
Hgb 12.7
Hct 36.4 L
Plt Count 175
Sodium 138
Potassium 4.4
Chloride 107
Carbon Dioxide 24
BUN 11
Creatinine 0.7
Glucose 77
Calcium 9.3
Total Bilirubin 3.8 H
AST 261 H
ALT 410 H
Alkaline Phosphatase 173 H
Vital Signs:
Vital Signs
Temp Pulse Resp BP Pulse Ox
97.8 F 83 18 123/76 98
09/21/23 07:00 09/21/23 07:00 09/21/23 07:00 09/21/23 07:00 09/21/23 08:48
I&O
09/20/23 09/21/23 09/22/23
06:59 06:59 06:59
Intake Total 1859 / 1959
Output Total 200 / 200
Balance 1859 1760 / 1760
[2023-09-21] MEDS: MORPHINE SULFATE 2 MG IV (10:42)
[2023-09-21] MEDS: FLUSH (NSS) 1 FLUSH IV ×2 (10:43→10:48)
[2023-09-21] MEDS: ZOFRAN 4 MG IV (10:48)
--- NOTE | 2023-09-21 10:58 | W.PN.UPDATE ---
Update Note
Progress Note Update
MRI + stone CBD
Likely ERCP this afternoon
Updated patient
D/w ERCP team and surgery team
Keep NPO
Ok for one dose of tylenol for headache
--- NOTE | 2023-09-21 14:30 | CM ---
Patient out of room to procedure. Patient at bedside. Patient states that they live in a 2 story home with no Prior DME. Patient was independent of ADL's and IADL's prior to admission. Patient states that they use the [facility] and that her Dr. Dunaway is her PCP. Patient anticipates no needs at discharge. CM will continue to follow for discharge planning needs.
Plan; home with no needs anticipated.
[2023-09-21 15:30] VITALS: BP 152/86
--- NOTE | 2023-09-21 16:19 | PTCARENOTE ---
Pt returned from PACU/GI lab via stretcher, accompanied by volunteer. Pt AAO x3, DUBON; drowsy. Pt transferred to bed. VSS. On room air- pulse ox 100%, no SOB noted. Abd soft, rounded, no c/o abd discomfort; BS (+)> Pt to start clear liquid diet;
aware of NPO past midnight for OR 09/21. Pt DTV post-procedure. IVF's RL @ 100 ml/hr resumed via Lt hand site without sxof infiltration. Currently resting in bed, no c/o. Will continue to monitor.
[2023-09-21 16:30] VITALS: BP 123/76
[2023-09-21 17:30] VITALS: BP 140/91
[2023-09-21 23:03] VITALS: BP 137/79
[2023-09-22 07:55] VITALS: BP 123/82
[2023-09-22] MEDS: LR 1000 IV ×2 (08:36→18:24)
--- NOTE | 2023-09-22 08:46 | W.PN.GS2 ---
Today's Communication / Plan
-
--Laparoscopic cholecystectomy with possible cholangiogram
--NPO, IVF
--Antibiotics: Zosyn
Assessment / Plan
-
This is a 47-year-old female with a history of a who presents with a 1 day history of acute postprandial right upper quadrant pain with 1 similar episode in February. Workup here concerning for cholelithiasis, elevated LFTs concerning for
choledocholithiasis.
PPD#1 s/p ERCP with stone removal, mild visualization of cystic duct no filling of GB
The natural history and pathophysiology of biliary and stone disease was discussed. Workup and management thus far was reviewed. Role of cholecystectomy in preventing future episodes of cholecystitis or choledocholithiasis was reviewed. Patient
would like to proceed with surgery.
Plan for laparoscopic cholecystectomy with possible cholangiogram. The procedure itself, as well as the risks, benefits, and alternatives was discussed. Specifically, we discussed the risks of bleeding, infection, injury to surrounding structures
(bowel, bile ducts), CBD injury, and need for open procedure. Typical postprocedural recovery was discussed. All questions answered. Consent signed.
--Laparoscopic cholecystectomy with possible cholangiogram
--NPO, IVF
--Antibiotics: Zosyn
--Pain control: Tylenol and IV Morphine PRN
Subjective Data
-
Date of Service: September 22, 2023
Feels improved. Pain improved. No nausea or vomiting. No fevers or chills. Reports having prior attacks in February and last Thursday. Denies any jaundice, pale stools, or tea colored urine.
Objective Data
-
Intake and Output
09/21/23 09/22/23 09/23/23
06:59 06:59 06:59
Intake Total 1959 / 1959 3920 / 3920
Output Total 200 / 200
Balance 1760 / 1760 3920 / 3920
Intake:
Oral fluids 960 / 960 1920 / 1920
IV fluids (Total) 1000 / 1000 1999 / 1999
Output:
Urine, Voided 200 / 200
Other:
Number of approximated MODERATE 1 2
amounts of urine
How many times incontinent 1
MODERATE amount urine
Vital Signs
Temp Pulse Resp BP Pulse Ox
98.4 F 61 16 123/82 98
09/22/23 07:55 09/22/23 07:55 09/22/23 07:55 09/22/23 07:55 09/22/23 08:29
Calcium 9.3 mg/dl (8.4-10.2) 09/21/23 04:34
Magnesium 1.9 mg/dl (1.6-2.3) 09/21/23 04:34
Total Bilirubin 3.8 mg/dl (0.2-1.3) H 09/21/23 04:34
Direct Bilirubin 1.2 mg/dl (0.0-0.4) H 09/20/23 06:00
AST 261 U/L (14-36) H 09/21/23 04:34
ALT 410 U/L (0-35) H 09/21/23 04:34
Alkaline Phosphatase 173 U/L (38-126) H 09/21/23 04:34
Total Protein 5.8 g/dl (6.3-8.2) L 09/21/23 04:34
Albumin 3.4 g/dl (3.5-5.0) L 09/21/23 04:34
Physical Exam
-
Gen: NAD
Abd: soft, mild tenderness, in RUQ, ND, non-peritoneal, prior scar well healed
--- NOTE | 2023-09-22 09:03 | W.PN.GI.CBS2 ---
Addendum entered and electronically signed by Estephania Holland DO 09/22/23 11:46:
I saw and examined the patient.
The MEDIA PLANNER or PA's note was reviewed and I agree with the note.
Comment: s/p ERCP with sphincterotomy yesterday for choledocholithiasis. Reports feeling well this morning. Plan for cholecystectomy today. GI will sign off, please call with questions.
Original Note:
Today's Communication / Plan
-
Await labs
For CCY
Diet per surgery
Assessment / Plan
-
47-year-old female presenting with abdominal pain found to have a elevated LFTs and gallstones. Found to have choledocholithiasis now s/p ERCP.
ERCP 09/21/23 - The major papilla appeared normal. (Noted next to a
diverticulum )
- A filling defect consistent with a stone was seen on
the cholangiogram.
- Choledocholithiasis/ sludge was found. Complete
removal was accomplished by biliary sphincterotomy and
balloon extraction.
- A biliary sphincterotomy was performed.
Impression:
Choledocholithiasis s/p ERCP with sphincterotomy and stone extraction
Cholelithiasis
Plan:
-Await labs
-Patient for CCY today
-Diet as per Surgery
Subjective
Subjective
Date of Service: September 22, 2023
Patient s/p ERCP 09/21/23 with sphincterotomy and stone extraction performed. Patient with some mild epigastric discomfort. Labs pending for today. Urine color is back to normal light yellow from 'orange color'. For cholecystectomy today.
Objective
Data Reviewed
Laboratory Data:
Laboratory Results
Magnesium 1.9 mg/dl (1.6-2.3) 09/21/23 04:34
Total Bilirubin 3.8 mg/dl (0.2-1.3) H 09/21/23 04:34
AST 261 U/L (14-36) H 09/21/23 04:34
ALT 410 U/L (0-35) H 09/21/23 04:34
Alkaline Phosphatase 173 U/L (38-126) H 09/21/23 04:34
Lipase 232 U/L (23-300) 09/19/23 14:31
Vital Signs and I&O:
Vital Signs
Temp Pulse Resp BP Pulse Ox
98.4 F 61 16 123/82 98
09/22/23 07:55 09/22/23 07:55 09/22/23 07:55 09/22/23 07:55 09/22/23 08:29
I&O
09/21/23 09/22/23 09/23/23
06:59 06:59 06:59
Intake Total 1960 / 1960 3920 / 3920
Output Total 200 / 200
Balance 1760 / 1760 3920 / 3920
Physical Exam
Physical Exam
HEENT: Anicteric
Cardiology: Normal Sinus Rhythm
Pulmonary: Clear
GI: Soft, Non Distended, Non Tender and Normal Bowel Sounds
Extremities: No Edema
Neuro: Non Focal
[2023-09-22 09:32] LABS: Hematocrit 37.7 % (37.0-47.0); Hemoglobin 13.5 g/dL (12.0-16.0); Mean Corp Hgb Conc. 35.8 g/dL (33.0-37.0); Mean Corpuscular Hgb 31.9 pg (27.0-31.0); Mean Corpuscular Volume 89.1 fL (81.0-99.0); Mean Platelet Volume 9.7 fL (7.4-10.4); Platelet Count 227 10^3/uL (130-400); Red Blood Cell Count 4.23 10^6/uL (4.20-5.40); Red Cell Dist. Width 11.1 % (11.5-14.5); White Blood Cell Count 5.5 10^3/uL (4.8-10.8)
[2023-09-22 09:49] LABS: ALT (SGPT) 280 U/L (0-35); AST (SGOT) 74 U/L (14-36); Albumin 3.8 g/dl (3.5-5.0); Alkaline Phosphatase 170 U/L (38-126); Blood Urea Nitrogen 9 mg/dl (7-17); Calcium 9.9 mg/dl (8.4-10.2); Carbon Dioxide 27 mmol/L (22-30); Chloride 105 mmol/L (98-107); Estimated Creatinine Clearance 114 ml/min; Glucose 111 mg/dl (70-99); Potassium 4.3 mmol/L (3.5-5.1); Sodium 137 mmol/L (135-145); Total Bilirubin 2.9 mg/dl (0.2-1.3); Total Protein 6.4 g/dl (6.3-8.2); eGFR > 60.00
[2023-09-22] MEDS: FLUSH (NSS) 1 FLUSH IV ×2 (10:04→15:59)
[2023-09-22] MEDS: ZOSYN 50 IV ×3 (10:04→21:55)
--- NOTE | 2023-09-22 11:36 | CM ---
I visited Elke in her room today and provided support. She will have cholecystectomy today. Plan is to return home with at discharge. CM will continue to follow.
--- NOTE | 2023-09-22 12:15 | W.SUR.PREOP ---
Pre-Operative Surgical Note
-
I have examined this patient prior to the performance of the scheduled procedure.
The patient's condition is unchanged from the time of the current History and
Physical and the patient is able to undergo the scheduled procedure.
--- NOTE | 2023-09-22 15:47 | W.PN.HOSP.TC ---
Today's Communication/Plan
-
Lap hermelinda for today
Spoke to surgeon -- patient cannot be discharged today
Assessment / Plan
Assessment / Plan
Physical Exam
General: Well Developed, Well Nourished, No Apparent Distress, Comfortable and Conversant; Negative Respiratory Distress
HEENT: Normocephalic, Atraumatic, Nose Appears Normal and Ears Appear Normal; Negative Oxygen
Respiratory: Clear to Auscultation and Non Labored Respirations; Negative Accessory Resp Muscle Use
Cardiac: Regular Rhythm and S1/S2
GI: Soft, Nontender and Nondistended. Positive bowel sounds.
Skin: Warm and Dry
Neuro: Awake, Alert, Oriented and AO x 3
Psych: Calm and Intact Judgement/Insight

Assessment/Plan
HPI: 47-year-old female with no known medical history and not taking any medication, presented to the hospital after she had a sudden onset of upper abdominal pain mostly epigastric and right upper quadrant radiating to the right shoulder associated
with sweating, nausea but no vomiting.
The pain started while she was at a bridal shower lunch, and she had a similar milder episode a few days prior.
In the emergency department, her LFTs were noted to be elevated.
Ultrasound showed cholelithiasis otherwise no acute abnormalities.
# RUQ Abd pain with gallstone, likely due to biliary colic
# Worsening transaminitis
# Choledocholithiasis/ sludge was found status post biliary sphincterotomy and balloon extraction.
Patient denied medication use, also not on herbal supplement
Abdominal ultrasound noted - Cholelithiasis, Gallbladder otherwise negative
Lipase WNL.
MRCP with stone in CBD
Hepatitis panel Hep B surface antibody positive
NPO for now
Follow LFT
Pain control with Morphine as needed
Antiemetic with Zofran as needed
GI on board
GS consulted -- lap hermelinda for this admission
Lap hermelinda today -- spoke to surgeon and patient will not be able to be discharged today
CODE STATUS full code
DVT prophylaxis SCD
Anticipated Discharge: 24 - 48 hours
Subjective/Interval History
-
Date of Service: September 22, 2023
Patient was seen and examined. She denied any abdominal pain or any other new symptoms or complaints.
Objective Data
-
Labs:
Laboratory Results
09/22/23
09:07
WBC 5.5
Hgb 13.5
Hct 37.7
Plt Count 227 D
Sodium 137
Potassium 4.3
Chloride 105
Carbon Dioxide 27
BUN 9
Creatinine 0.6
Glucose 111 H
Calcium 9.9
Total Bilirubin 2.9 H
AST 74 H
ALT 280 H
Alkaline Phosphatase 170 H
Vital Signs:
Vital Signs
Temp Pulse Resp BP Pulse Ox
98.4 F 61 16 123/82 98
09/22/23 07:55 09/22/23 07:55 09/22/23 07:55 09/22/23 07:55 09/22/23 08:29
I&O
09/21/23 09/22/23 09/23/23
06:59 06:59 06:59
Intake Total 1960 / 1960 3920 / 3920
Output Total 200 / 200
Balance 1760 / 1760 3920 / 3920
[2023-09-22 15:55] VITALS: BP 131/81
--- NOTE | 2023-09-22 16:01 | PTCARENOTE ---
Pt AAO x3, DUBON well, ambulatory in room/to BR; geraldo well. VSS. On room air- pulse ox 99%, no SOB noted. Abd soft, rounded, remains NPO for OR. Voiding in BR without difficulty. IVF's RL @ 100 ml/hr infusing via Lt hand without sx of infiltration.
No c/o at present. Will continue to monitor.
[2023-09-22 23:36] VITALS: BP 149/94
[2023-09-23] MEDS: VISBIOME 1 CAP PO (01:07)
[2023-09-23 03:48] VITALS: BP 117/67
[2023-09-23] MEDS: LR 1000 IV (04:50)
[2023-09-23] MEDS: ZOSYN 50 IV (04:53)
[2023-09-23 07:16] LABS: % Basophils 0.6 % (0-2); % Eosinophils 2.3 % (0-6); % Immature Granulocytes 0.2 % (0-0.5); % Lymphocytes 42.3 % (20.5-51.1); % Monocytes 11.1 % (1.7-9.3); % Neutrophils 43.5 % (42.2-75.2); Absolute Eosinophils 0.1 10^3/uL (0-0.7); Absolute Monocytes 0.5 10^3/uL (0.1-0.6); Hematocrit 34.3 % (37.0-47.0); Hemoglobin 12.1 g/dL (12.0-16.0); Mean Corp Hgb Conc. 35.3 g/dL (33.0-37.0); Mean Corpuscular Hgb 31.8 pg (27.0-31.0); Mean Platelet Volume 9.6 fL (7.4-10.4); Nucleated Red Blood Cells % 0 %; Platelet Count 181 10^3/uL (130-400); Red Blood Cell Count 3.81 10^6/uL (4.20-5.40); Red Cell Dist. Width 11.3 % (11.5-14.5); White Blood Cell Count 4.7 10^3/uL (4.8-10.8)
[2023-09-23 08:00] VITALS: BP 136/76
[2023-09-23 08:07] LABS: ALT (SGPT) 187 U/L (0-35); AST (SGOT) 35 U/L (14-36); Albumin 3.2 g/dl (3.5-5.0); Alkaline Phosphatase 128 U/L (38-126); Blood Urea Nitrogen 9 mg/dl (7-17); Calcium 9.3 mg/dl (8.4-10.2); Carbon Dioxide 27 mmol/L (22-30); Chloride 108 mmol/L (98-107); Estimated Creatinine Clearance 98 ml/min; Glucose 111 mg/dl (70-99); Magnesium 1.8 mg/dl (1.6-2.3); Potassium 3.9 mmol/L (3.5-5.1); Sodium 139 mmol/L (135-145); Total Bilirubin 2.2 mg/dl (0.2-1.3); Total Protein 5.6 g/dl (6.3-8.2); eGFR > 60.00
--- NOTE | 2023-09-23 09:26 | W.PN.UPDATE ---
Update Note
Progress Note Update
Pt added onto today's schedule for alvino shen. She is upset that her operation did not take place yesterday as planned. She informs me she feels well and prefers DC now and to f/u outpt for her operation.
I advised her this is likely safe and reasonable though there is risk of recurrent episodes as long as her gb remains in situ. She verbalized understanding.
LFD --> DC home when tolerating
[2023-09-23] MEDS: ZOSYN IV (10:30)
--- NOTE | 2023-09-23 10:43 | W.PN.HOSP.TC ---
Today's Communication/Plan
-
Discharge today
Assessment / Plan
Assessment / Plan
Physical Exam
General: Not in acute distress
HEENT: Normocephalic
Respiratory: Clear to Auscultation Bilaterally
Cardiac: Regular Rhythm and S1/S2
GI: Soft, Nontender and Nondistended. Positive bowel sounds.
Skin: Warm and Dry
Neuro: Awake, Alert, Oriented and AO x 3

Assessment/Plan
HPI: 47-year-old female with no known medical history and not taking any medication, presented to the hospital after she had a sudden onset of upper abdominal pain mostly epigastric and right upper quadrant radiating to the right shoulder associated
with sweating, nausea but no vomiting.
The pain started while she was at a bridal shower lunch, and she had a similar milder episode a few days prior.
In the emergency department, her LFTs were noted to be elevated.
Ultrasound showed cholelithiasis otherwise no acute abnormalities.
# RUQ Abd pain with gallstone, likely due to biliary colic
# Worsening transaminitis
# Choledocholithiasis/ sludge was found status post biliary sphincterotomy and balloon extraction.
#Gallbladder wall thickening with edema with suspected acute cholecystitis.
Patient denied medication use, also not on herbal supplement
Abdominal ultrasound noted - Cholelithiasis, Gallbladder otherwise negative
Lipase WNL.
MRCP with stone in CBD
Hepatitis panel Hep B surface antibody positive
Follow LFT
Pain control with Morphine as needed
Antiemetic with Zofran as needed
GI on board
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
Return to the emergency room if pain/fever/n/v
GS consulted -- alvino shen for this admission -- however patient reports physically feeling fine, and as per surgery safe to discharge (with 7 days of antibiotics) if tolerating PO
Cipro 500 mg PO every 12 hours plus Flagyl 500 mg PO Q8H for 7 days -- needs close outpatient follow-up
CODE STATUS full code
DVT prophylaxis SCD
More than 30 minutes spent in discharge including
Final examination of the patient
Summarizing hospital stay
Instructions for continuing care to all relevant caregivers
Preparation of discharge records, prescriptions, and referral forms
Total time spent (in minutes): 39
Anticipated Discharge: Today
Subjective/Interval History
-
Date of Service: September 23, 2023
Patient was seen and examined. She reported that she is upset that her surgery was not done yesterday, and now she wants to leave.
Objective Data
-
Labs:
Laboratory Results
09/23/23
07:07
WBC 4.7 L
Hgb 12.1
Hct 34.3 L
Plt Count 181 D
Sodium 139
Potassium 3.9
Chloride 108 H
Carbon Dioxide 27
BUN 9
Creatinine 0.7
Glucose 111 H
Calcium 9.3
Total Bilirubin 2.2 H
AST 35
ALT 187 H
Alkaline Phosphatase 128 H
Vital Signs:
Vital Signs
Temp Pulse Resp BP Pulse Ox
97.4 F 59 18 136/76 96
09/23/23 08:00 09/23/23 08:00 09/23/23 08:00 09/23/23 08:00 09/23/23 08:00
I&O
09/22/23 09/23/23 09/24/23
06:59 06:59 06:59
Intake Total 3920 / 3920 1780 / 1780
Balance 3920 / 3920 1780 / 1780
--- NOTE | 2023-09-23 11:03 | W.DS.TRANS ---
DC Summary - [employer]
-
Discharge Instructions:
Discharge Diagnosis/Procedures #Abdominal Pain with gallstone, likely due to
biliary colic
#Worsening transaminitis
#Choledocholithiasis/ sludge was found status
post biliary sphincterotomy and balloon
extraction
#Gallbladder wall thickening with edema with
suspected acute cholecystitis
Diet As tolerated,Low Cholesterol,Low Fat
Activity As tolerated
Instructions: Gallstones
Ciprofloxacin (Systemic)
Metronidazole (Systemic)
Gallstones (DC)
Stand-Alone Forms:
Changes to Home Medications: Yes
Discharge Medications:
DC Medications w/original date entered in [facility]
MULTIPLE VITAMIN w/FE 1 tab PO DAILY Supplement 03/27/14
folic acid-vit B6-vit B12 2.2 mg-25 mg-0.5 mg tablet (Folplex) 1 tab PO DAILY Supplement 03/27/14
ibuprofen 600 mg tablet 600 mg PO Q6HPRN PRN moderate pain/cramps ##0 03/31/14
oxycodone-acetaminophen 5 mg-325 mg tablet 1 tab PO Q4HPRN PRN moderate pain ##30 03/31/14
docusate sodium 100 mg capsule 100 mg PO BID Constipation 09/20/23
ciprofloxacin HCl 500 mg tablet 500 mg PO Q12H 7 days #14 tabs 09/23/23
metronidazole 500 mg tablet 500 mg PO Q8H 7 days #21 tabs 09/23/23
Home Medication Changes
Ciprofloxacin and Metronidazole are new medications.
Pending Results: No
Total time spent discharging patient (in min): 39
--- NOTE | 2023-09-23 11:44 | PTCARENOTE ---
Received patient this am AAOx3. Tearful regarding health issue. Pt stated ' that if she is taken to surgery by 12 noon she plans to leave hospital'. Dr Dupree saw patient. Pt refused surgery. Patient tolerated a Low Fat diet. Offered no
complaints of nausea,vomiting , abdominal pain or diarrhea. IV site was leaking. Pt refused IV site to be restarted. Explained to patient that she is due for an Zosyn IV. Pt refused IV antibiotic at 10:30. Dr. Castillo and Dr. Dupree made aware.
Pt discharged to home with instructions to follow up with GI an Surgery. Pt instructed to come to ER for evaluation if she develops pain, nausea, vomiting, diarrhea or fever. Made patient comfortable. Cont to assess patient status.
--- NOTE | 2023-09-26 08:04 | W.DCSUMMARY ---
Discharge Summary
Discharge Data
Date of Admission: 09/19/23
Date of Discharge: 09/23/23
Total time spent discharging patient (in min): 39
-
Pending Results: No
Hospital Course
47 y/o female who presented with abdominal pain. Patient was found to have elevated hepatic transaminases and gallstones. MRCP imaging was ordered and gastroenterology was consulted. On September 21, 2023, patient had an ERCP done, and it showed
choledocholithiasis/sludge was found, and complete removal was performed by biliary sphincterotomy and balloon extraction. Patient was continued on broad-spectrum antibiotics Zosyn. General surgery was also consulted for cholecystectomy. Patient's
surgery had to postponed to an extra day as per surgery, however, patient wanted to be discharged and follow-up outpatient and get surgery outpatient -- discussed case with surgeon who recommended discharging patient on a 7-day course of
antibiotics, with close follow-up outpatient, and advising patient to return to the emergency room if any new symptoms including but not limited to nausea, vomiting, abdominal pain or fever developed.
Discharge Plan
-
Patient Disposition: Home (Routine Discharge)
Discharge Diagnosis/Procedures: #Abdominal Pain with gallstone, likely due to biliary colic
#Worsening transaminitis
#Choledocholithiasis/ sludge was found status post biliary sphincterotomy and balloon extraction
#Gallbladder wall thickening with edema with suspected acute cholecystitis
Condition: Fair
Diet: As tolerated, Low Fat and Low Cholesterol
Activity: As tolerated
Activity Restrictions/Additional Instructions:
It is absolutely important that you note the below:
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
speak (THIS WEEK) with your outpatient physicians about this.
2) If you have any new symptoms, including but not limited to pain, fever, nausea, vomiting or diarrhea you need to return to the emergency room right away.
3) Read the handout instructions on antibiotics and gallstones.
Instructions: Gallstones, Ciprofloxacin (Systemic), Metronidazole (Systemic), Gallstones (DC)
Referrals:
Cheyenne Dunaway MD [Family Provider] - in one day
Bobby Perry MD [Active] - in one day
Lindsey Nelson DO [Active] - in one day (Cholelithiasis and Cholecystitis Hospital Follow-up)
Additional Discharge Medication Instructions: Ciprofloxacin and Metronidazole are new medications.
Prescriptions:
New
ciprofloxacin HCl 500 mg tablet
500 mg PO Q12H 7 Days Qty: 14 0RF
metronidazole 500 mg tablet
500 mg PO Q8H 7 Days Qty: 21 0RF
Continued
MULTIPLE VITAMIN w/FE Tab
1 tab PO DAILY
Folplex 2.2 1 EACH tablet
1 tab PO DAILY
oxycodone-acetaminophen 5 MG/325 MG tablet
1 tab PO Q4HPRN PRN (Reason: moderate pain) Qty: 30 0RF
ibuprofen 600 MG tablet
600 mg PO Q6HPRN PRN (Reason: moderate pain/cramps) Qty: 0 0RF
docusate sodium 100 MG capsule
100 mg PO BID
Discharge Orders:
Discharge Patient (As Directed); Ordered 09/23/23
Ordered By: Ronny Castillo
Discharge Date and Time
Discharge Date/Time: 09/23/23 11:20
Print Language: URDU
== END 2023-09-23 11:20 | disposition home or self-care (01) | DRG 446 ==
LOC: 4 EAST ACU 22:05
PROVIDERS: Emergency Medicine; Internal Medicine; Internal Medicine Gastroenterology; Radiology Diagnostic Radiology; Surgery; ADMITTING PHYSICIAN Internal Medicine; ATTENDING PHYSICIAN Hospitalist; CONSULT PHYSICIAN Internal Medicine Gastroenterology; EMERGENCY PHYSICIAN Emergency Medicine; FAMILY PHYSICIAN Emergency Medicine; OTHER PHYSICIAN Surgery
PROC: BF111ZZ Fluoroscopy of Biliary and Pancreatic Ducts using Low Osmolar Contrast (ICD-10-PCS; 2023-09-21)
PROC: 0FC98ZZ Extirpation of Matter from Common Bile Duct, Via Natural or Artificial Opening Endoscopic (ICD-10-PCS; 2023-09-21)
DX: K80.62 Calculus of gallbladder and bile duct with acute cholecystitis without obstruction (principal); R74.01 Elevation of levels of liver transaminase levels; R51.9 Headache, unspecified; Z53.9 Procedure and treatment not carried out, unspecified reason
CPT/HCPCS: 74183; 74330; 76000; 76700; 80053; 81003; 82248; 83690; 83735; 84443; 84703; 85025; 85027; 86704; 86705; 86706; 86708; 86709; 86803; 87340; 93005; 96361; 96374; 96375; 99285; A9575; C1769

== ENCOUNTER → 2024-08-25 17:17 | Outpatient (REF) | payer OTHER, SELFPAY | LOC: WDC 17:17 | PROVIDERS: ATTENDING PHYSICIAN Emergency Medicine | DX: Z12.31 Encounter for screening mammogram for malignant neoplasm of breast (principal) | CPT/HCPCS: 77063; 77067 ==

== ENCOUNTER → 2024-08-30 13:38 | Outpatient (REF) | payer OTHER, SELFPAY | LOC: PAVMRI 13:38 | PROVIDERS: ATTENDING PHYSICIAN Emergency Medicine | DX: R51.9 Headache, unspecified (principal); R42 Dizziness and giddiness | CPT/HCPCS: 70553; A9575 ==